=== PATIENT | male | born 1970 | race Caucasian/White ===

== ENCOUNTER 2022-02-03 08:07 | Outpatient (CLI) | payer OTHER ==
--- NOTE | 2022-02-03 09:27 | XRay Report ---
CHEST 2 VIEWS INDICATION: RULE OUT ACTIVE TB. COMPARISON: none FINDINGS: Support devices: None. Heart: Within normal limits. Lungs/pleura: No acute air space or interstitial disease. No pleural abnormality or pneumothorax. Additional findings: None. IMPRESSION: No acute findings. No findings to suggest primary or reactive tuberculosis in the chest. Signer Name: Gabe Carlson Jr, MD Signed: 02/03/2022 9:23 AM Workstation Name: [id number]
== END 2022-02-03 08:08 | disposition home or self-care (01) ==
LOC: XRAY 08:07
DX: A15.9 Respiratory tuberculosis unspecified (principal)
CPT/HCPCS: 71046